=== PATIENT | male | born 1985 | race Caucasian/White ===

== ENCOUNTER → 2023-10-24 10:36 | Outpatient (BNVA) | payer MEDICAID, SELFPAY | PROVIDERS: PCP Nurse Practitioner Family; Visit Provider Nurse Practitioner Family | DX: E66.01 Morbid (severe) obesity due to excess calories (principal) | CPT/HCPCS: 80053; 82040; 83036; 84270; 84403; 84443; 85025 ==

== ENCOUNTER 2024-07-24 13:48 | Outpatient (CLI) | payer MEDICAID, SELFPAY | END 2024-07-24 13:49 | disposition home or self-care (01) | LOC: SLEEP 13:50 | PROVIDERS: PCP Nurse Practitioner Family; Visit Provider Nurse Practitioner Family | DX: G47.33 Obstructive sleep apnea (adult) (pediatric) (principal); G47.36 Sleep related hypoventilation in conditions classified elsewhere | CPT/HCPCS: G0399 ==